=== PATIENT | male | born 1965 | race African-American/Black ===

== ENCOUNTER 2025-02-08 20:11 | Emergency (ER) | payer SELFPAY ==
[~2025-02-08] VITALS: Ht 177.8 cm; Wt 79.0 kg
[2025-02-08 20:21] VITALS: TEMP 36.7; O2SAT 98
[2025-02-08 21:45] LABS: HEMATOCRIT. 45.3 % (42.0-52.0); HEMOGLOBIN. 14.6 g/dL (14.0-18.0); RED BLOOD CELL COUNT 4.80 mill/uL (4.7-6.1)
[2025-02-08 21:46] LABS: BASOPHILS % 0.1 % (0.0-2.0); EOSINOPHILS % 1.0 % (0.0-5.0); LYMPHOCYTES % 20.4 % (20.0-50.0); MEAN PLATELET VOLUME 8.9 fl (7.4-10.4); MONOCYTES % 11.1 % (2.0-8.0); NEUTROPHILS % 67.4 % (40.0-76.0); PLATELET 171 x1000/uL (130-400); RED CELL DISTRIBUTION WIDTH 13.9 % (11.6-14.6)
[2025-02-08 21:59] LABS: CREATININE 0.9 mg/dL (0.6-1.3)
[2025-02-08 22:00] LABS: INR 1.0; TROPONIN I HIGH SENSITIVITY < 4 ng/L (3.0-53); UREA NITROGEN BLOOD 10 mg/dL (9-23)
[2025-02-08 22:09] VITALS: TEMP 98
[2025-02-08] MEDS: SODIUM CHLORIDE 0.9% 1,000 ML IV ONE (22:09)
[2025-02-08] MEDS: ACETAMINOPHEN 500MG TABLET PO ONE (22:09)
[2025-02-08] MEDS: BACITRACIN 14GM TUBE TOP SCH (23:00)
[2025-02-08] MEDS ORDERED: ACET-2708 MT (23:57)
[2025-02-09 00:20] VITALS: BP 143/91; PULSE 81; RESP 13; O2SAT 97
== END 2025-02-09 00:24 | disposition home or self-care (01) ==
LOC: ER 20:26 → CANBEDREQ 02-09 00:16 → ER 02-09 00:24
DX: S80.211A Abrasion, right knee, initial encounter (principal); I10 Essential (primary) hypertension; Z79.899 Other long term (current) drug therapy; V18.4XXA Pedal cycle driver injured in noncollision transport accident in traffic accident, initial encounter; Y93.55 Activity, bike riding; Y92.89 Other specified places as the place of occurrence of the external cause; Y99.8 Other external cause status
CPT/HCPCS: 80048; 80320; 83880; 85025; 85610; 85730; 84484; 36415; 71045; 73090; 73560; 70450; 93005; 96360; 96361; 99285; J7030; G0480